=== PATIENT | male | born 1985 | race Caucasian/White ===

== ENCOUNTER → 2020-11-06 | Outpatient (CLI) | payer MEDICARE, OTHER | LOC: EXRD 10-29 09:00 → KOH-I 09:47 → EXRD 10:15 | DX: K76.0 Fatty (change of) liver, not elsewhere classified (principal); N27.0 Small kidney, unilateral | CPT/HCPCS: 76700 ==

== ENCOUNTER → 2020-12-07 | Outpatient (CLI) | payer MEDICARE, OTHER | LOC: CT 08:25 | DX: R93.5 Abnormal findings on diagnostic imaging of other abdominal regions, including retroperitoneum (principal); N28.89 Other specified disorders of kidney and ureter ==

== ENCOUNTER → 2021-11-25 | Outpatient (CLI) | payer MEDICARE, OTHER | LOC: KOH-I 10:59 | DX: K76.0 Fatty (change of) liver, not elsewhere classified (principal) | CPT/HCPCS: 76700 ==